=== PATIENT | female | born 1985 | race Caucasian/White ===

== ENCOUNTER 2017-08-13 15:43 | Emergency (ER) | payer SELFPAY ==
--- NOTE | 2017-08-13 16:45 | C.PDOC ---
History Of Present Illness Patient is a 32 y/o female who presents to the ED with a complaint of an itchy rash on bilateral arms and right hand for approximately 8-9 months. Patient admits to taking OTC hydrocortizone cream and terbinafine cream without relief. Denies fever, travel, and sick contact. Patient has no other complaints at this time. Time Seen by Provider: 08/13/17 16:00 Chief Complaint (Nursing): Abnormal Skin Integrity History Per: Patient History/Exam Limitations: no limitations Onset/Duration Of Symptoms: Days (8-9 months. ) Current Symptoms Are (Timing): Still Present Quality Of Symptoms: Itching Recent travel outside of the [place]: No Past Medical History Reviewed: Historical Data, Nursing Documentation, Vital Signs Vital Signs: Last Vital Signs Temp 98.2 F 08/13/17 16:57 Pulse 67 08/13/17 16:57 Resp 18 08/13/17 16:57 BP 112/65 08/13/17 16:57 Pulse Ox 99 08/13/17 18:02 - Medical History PMH: Hypothyroidism Surgical History: No Surg Hx Family History: States: No Known Family Hx - Social History Hx Alcohol Use: No Hx Substance Use: No Review Of Systems Constitutional: Negative for: Fever Skin: Positive for: Rash (bilateral arms and right hand. ) Physical Exam - Physical Exam Appears: Well, Non-toxic Skin: Normal Color, Warm, Rash (positive 1-2 mm papular rash with excoriation along 3rd and 4th fingers; rash along dorsal aspect of bilateral arms), Other ( no evidence of cellulitis ) Head: Atraumatic, Normacephalic Eye(s): bilateral: Normal Inspection Oral Mucosa: Moist Tongue: Normal Appearing Lips: Normal Appearing Throat: No Erythema, No Exudate Neck: Normal ROM, Supple Cardiovascular: Rhythm Regular Respiratory: Normal Breath Sounds Extremity: Normal ROM, No Swelling Neurological/Psych: Oriented x3, Normal Speech, Normal Cognition, Normal Motor, Normal Sensation Gait: Steady ED Course And Treatment O2 Sat by Pulse Oximetry: 99 (room air ) Pulse Ox Interpretation: Normal Medical Decision Making Medical Decision Making: Plan: Prednisone and Benadryl administered. Progress: patient discharged home. Disposition - Disposition Referrals: Jasper Mackenzie MD [Staff Provider] - Disposition: HOME/ ROUTINE Disposition Time: 16:48 Condition: GOOD Additional Instructions: Follow up with the medical doctor within 1-2 days. Return if worsened. Prescriptions: Hydrocortisone 1% Oint [Cortizone 1% Oint] 1 appl TP BID #2 tube predniSONE [Prednisone] 10 mg PO BID #10 tab Instructions: Dyshidrotic Eczema (ED) Forms: [employer] (Greek) - Clinical Impression Clinical Impression: Dyshidrotic eczema - Scribe Statement The provider has reviewed the documentation as recorded by the Scribe Basia Smart All medical record entries made by the Armaanibdex were at my direction and personally dictated by me. I have reviewed the chart and agree that the record accurately reflects my personal performance of the history, physical exam, medical decision making, and the department course for this patient. I have also personally directed, reviewed, and agree with the discharge instructions and disposition.
[2017-08-13 16:59] VITALS: BP 112/65; PULSE 67; RESP 18; TEMP 98.2
[2017-08-13 17:58] VITALS: O2SAT 99
== END 2017-08-13 17:00 | disposition home or self-care (01) ==
LOC: C.ER 15:43
DX: L30.1 Dyshidrosis [pompholyx] (principal)

== ENCOUNTER 2018-05-17 12:18 | Emergency (ER) | payer OTHER ==
[2018-05-17 12:39] VITALS: BP 106/71; PULSE 84; RESP 18; TEMP 99; O2SAT 99
--- NOTE | 2018-05-17 12:58 | C.PDOC ---
History Of Present Illness 32-year-old female presents to the ED for evaluation of an itchy rash to her bilateral arms and hands for approx 1.5 years. Patient states she has been evaluated by a local sign manufacturer and has undergone several rounds of PO and topical steroid treatments. Patient reports her symptoms keep reoccurring and presents to the ED for further evaluation. Patient denies fever, chills, runny nose, sore throat, cough. Time Seen by Provider: 05/17/18 12:41 Chief Complaint (Nursing): Abnormal Skin Integrity History Per: Patient History/Exam Limitations: no limitations Onset/Duration Of Symptoms: Hrs Current Symptoms Are (Timing): Still Present Location Of Injury: Right: Arm, Hand, Left: Arm, Hand Quality Of Symptoms: Itching Severity: Mild Additional History Per: Patient Past Medical History Reviewed: Historical Data, Nursing Documentation, Vital Signs Vital Signs: Last Vital Signs Temp 99 F 05/17/18 12:36 Pulse 84 05/17/18 12:36 Resp 18 05/17/18 12:36 BP 106/71 05/17/18 12:36 Pulse Ox 99 05/17/18 14:38 - Medical History PMH: Hypothyroidism Other PMH: eczema Surgical History: No Surg Hx Family History: States: No Known Family Hx - Social History Hx Alcohol Use: No Hx Substance Use: No Review Of Systems Constitutional: Negative for: Fever, Chills ENT: Negative for: Nose Discharge, Throat Pain Respiratory: Negative for: Cough, Shortness of Breath Skin: Positive for: Rash (hands/arms) Physical Exam - Physical Exam Appears: Well, Non-toxic, No Acute Distress Skin: Warm, Dry, Rash (scattered dry patches with small blisters to bilateral hands and antecubital areas. eczematous appearing ) Head: Normacephalic Eye(s): bilateral: Normal Inspection Ear(s): Bilateral: Normal Nose: Normal Oral Mucosa: Moist Tongue: Normal Appearing, No Swelling Lips: Normal Appearing, No Swelling Throat: Normal, No Erythema, No Exudate, No Drooling Neck: Supple Cardiovascular: Rhythm Regular, Murmur Respiratory: Normal Breath Sounds, No Rales, No Rhonchi, No Wheezing, Other ( speaking in full sentences) Extremity: Normal ROM Pulses: Left Radial: Normal, Right Radial: Normal Neurological/Psych: Oriented x3 ED Course And Treatment O2 Sat by Pulse Oximetry: 99 (on RA) Pulse Ox Interpretation: Normal Progress Note: Patient given PO Claritin in ED. Explained to patient that she needs to follow up either with her sign manufacturer or new derm for second opinion , not in the ER. List of local dermatologists given to patient. Rxs for hydrocortisone & benadryl creams, PO Claritin given. Patient understands she should return to ED if her symptoms worsen. Reassessment Condition: Improved Disposition Counseled Patient/Family Regarding: Studies Performed, Diagnosis, Need For Followup, Rx Given - Disposition Disposition: HOME/ ROUTINE Disposition Time: 13:00 Condition: STABLE Additional Instructions: YOU NEED TO FOLLOW UP WITH [facility]ER WITHIN 1 WEEK USE MEDICATIONS DIRECTED APPLY COLD COMPRESSES TO ITCHY AREAS RETURN TO ER IF SYMPTOMS WORSEN Prescriptions: Diphenhydramine 1% [BENADRYL 1% Zinc Acetate -0.1%] 1 applic TOP BID #1 tube Hydrocortisone [Eczema Anti-Itch] 1 appl TOP BID #1 cream..g. Loratadine [Claritin] 10 mg PO DAILY PRN #15 tab PRN Reason: Itching / Pruritus Instructions: Eczema (Atopic Dermatitis) (DC) Forms: [employer] (Estonian) Print Language: SYRIAC - Clinical Impression Clinical Impression: Eczema - Scribe Statement The provider has reviewed the documentation as recorded by the Scribe (Rita Lerma) Provider Attestation: All medical record entries made by the Scribe were at my direction and personally dictated by me. I have reviewed the chart and agree that the record accurately reflects my personal performance of the history, physical exam, medical decision making, and the department course for this patient. I have also personally directed, reviewed, and agree with the discharge instructions and disposition.
== END 2018-05-17 13:11 | disposition home or self-care (01) ==
LOC: C.ER 12:18
DX: L30.9 Dermatitis, unspecified (principal)